=== PATIENT | female | born 1955 | race Caucasian/White ===

== ENCOUNTER 2016-08-06 18:57 | Emergency (ER) | payer OTHER ==
[2016-08-06 19:24] VITALS: BP 180/91; PULSE 61; RESP 18; TEMP 97.6; O2SAT 98
[2016-08-06] MEDS ORDERED: KETOROLAC TROMETHAMINE 30 MG/ML SOL IM ONE (21:14)
[2016-08-06] MEDS ORDERED: KETOROLAC TROMETHAMINE 30 MG/ML SOL ONE ×2 (21:17→21:25)
== END 2016-08-06 22:05 | disposition home or self-care (01) | DRG 552 ==
LOC: ED 18:57
DX: M54.42 Lumbago with sciatica, left side (principal); M16.12 Unilateral primary osteoarthritis, left hip
CPT/HCPCS: 72120; 72170; 73502; 96372; 99282; 99283; J1885

== ENCOUNTER 2016-08-16 11:00 | Emergency (ER) | payer OTHER ==
[2016-08-16 11:19] VITALS: BP 160/73; PULSE 70; RESP 18; O2SAT 97
[2016-08-16] MEDS ORDERED: APAP/HYDROCODONE 325/5 TAB PO ONE (11:52)
[2016-08-16] MEDS ORDERED: KETOROLAC TROMETHAMINE 30 MG/ML SOL IM ONE (11:52)
[2016-08-16] MEDS ORDERED: MECLIZINE HYDROCHLORIDE 12.5 MG TAB PO ONE (11:52)
[2016-08-16] MEDS ORDERED: KETOROLAC TROMETHAMINE 30 MG/ML SOL ONE (11:54)
[2016-08-16] MEDS ORDERED: APAP/HYDROCODONE 325/5 TAB ONE ×2 (11:54→12:01)
[2016-08-16] MEDS ORDERED: MECLIZINE HYDROCHLORIDE 12.5 MG TAB ONE (11:55)
== END 2016-08-16 13:07 | disposition home or self-care (01) | DRG 93 ==
LOC: ED 11:00
DX: G89.29 Other chronic pain (principal); M54.5 Low back pain; R42 Dizziness and giddiness; R11.0 Nausea
CPT/HCPCS: 96372; 99283; J1885

== ENCOUNTER 2016-09-13 11:24 | Day surgery (SDC) | payer OTHER ==
[2016-09-13 11:34] VITALS: RESP 16
[2016-09-13] MEDS ORDERED: TRIAMCINOLONE ACETONIDE 40 MG/ML SUS ONE (12:34)
[2016-09-13] MEDS ORDERED: LIDOCAINE HCL 1% MPF SOL ONE (12:47)
[2016-09-13 13:04] VITALS: BP 132/61; PULSE 86; TEMP 97; O2SAT 96
== END 2016-09-13 14:30 | disposition home or self-care (01) | DRG 552 ==
LOC: SURG 11:24
PROVIDERS: ATTEND Nurse Anesthetist, Certified Registered
DX: M54.5 Low back pain (principal)
CPT/HCPCS: 82962; J2001; J3300

== ENCOUNTER 2016-10-04 11:40 | Day surgery (SDC) | payer OTHER ==
[2016-10-04] MEDS ORDERED: DIAZEPAM 5 MG TAB ONE (11:42)
[2016-10-04 11:51] VITALS: BP 131/76; PULSE 79; RESP 16; TEMP 97; O2SAT 97
[2016-10-04] MEDS ORDERED: TRIAMCINOLONE ACETONIDE 40 MG/ML SUS ONE (12:16)
== END 2016-10-04 13:11 | disposition home or self-care (01) | DRG 552 ==
LOC: SURG 11:40
PROVIDERS: ATTEND Nurse Anesthetist, Certified Registered
DX: M54.16 Radiculopathy, lumbar region (principal)
CPT/HCPCS: J3300

== ENCOUNTER 2016-10-08 13:33 | Emergency (ER) | payer OTHER ==
[2016-10-08 14:33] VITALS: RESP 22
[2016-10-08 15:09] VITALS: TEMP 97.2
[2016-10-08 15:50] VITALS: BP 139/72; PULSE 86; O2SAT 97
== END 2016-10-08 16:01 | disposition home or self-care (01) | DRG 639 ==
LOC: ED 13:33
DX: E11.649 Type 2 diabetes mellitus with hypoglycemia without coma (principal); Z79.84 Long term (current) use of oral hypoglycemic drugs
CPT/HCPCS: 82962; 99282; 99284